=== PATIENT | female | born 2005 | race Two or more races ===

== ENCOUNTER 2024-09-01 22:41 | Emergency (ER) | payer SELFPAY ==
[~2024-09-01] VITALS: Ht 157.5 cm; Wt 69.1 kg
[~2024-09-01 22:41] MED LIST: TYLENOL
--- NOTE | 2024-09-01 23:41 | ED.PDOC ---
Eye-HPI HPI Comments 19-year-old female complaining of bilateral eye irritation and blurred vision. States she had her eyelashes done today at approximate 2:00 p.m.. States she believes some of the chemicals used to help with the eyelashes set got into her eyes. States he has been having burning and irritation since then. Chief Complaint: Eye Problem Time Seen by MD: 23:18 Primary Care Provider: NONE AT THIS TIME Reviewed Notes: Nurses Notes Allergies: Coded Allergies: NO KNOWN ALLERGIES (Unverified , 09/04/11) Home Meds Reported Medications [Tylenol] No Conflict Check 09/04/11 Information Source: Patient Mode of Arrival: Ambulatory Past Medical History PAST MEDICAL HISTORY: Denies Surgical History: Denies all surgeries PRIMARY HEALTH CARE NURSE History: No Pertinent PRIMARY HEALTH CARE NURSE History Family History Family History: Unknown Social History Smoker: Non-Smoker Alcohol: Denies ETOH Use Drugs: Denies Drug Use Lives In: Home Constitutional: denies: chills, diaphoresis, fatigue, fever, malaise, sweats, weakness, others EENTM: reports: eye pain, eye redness; denies: blurred vision, double vision, ear bleeding, ear discharge, ear drainage, ear pain, ear ringing, hearing loss, mouth pain, mouth swelling, nasal discharge, nose bleeding, nose congestion, nose pain, photophobia, tearing, throat pain, throat swelling, voice changes, others Respiratory: denies: cough, hemoptysis, orthopnea, SOB at rest, shortness of breath, SOB with excertion, stridor, wheezing, others Cardiovascular: denies: chest pain, dizzy spells, diaphoresis, Dyspnea on exertion, edema, irregular heart beat, left arm pain, lightheadedness, palpitations, PND, syncope, others Gastrointestinal: denies: abdomen distended, abdominal pain, blood streaked bowels, constipated, diarrhea, dysphagia, difficulty swallowing, hematemesis, melena, nausea, poor appetite, poor fluid intake, rectal bleeding, rectal pain, vomiting, others Genitourinary: denies: abnormal vagina bleeding, burning, dyspareunia, dysuria, flank pain, frequency, hematuria, incontinence, pain, , vagina discharge, urgency, others Musculoskeletal: denies: back pain, gout, joint pain, joint swelling, muscle pain, muscle stiffness, neck pain, others Integumetry: denies: bruises, change in color, change in hair/nails, dryness, laceration, lesions, lumps, rash, wounds, others Allergic/Immunocompromised: denies: Difficulty Healing, Frequent Infections, Hives, Itching, others Hematologic/Lymphatic: denies: anemia, blood clots, easy bleeding, easy bruising, swollen glands, others Physical Exam General Appearance: No Apparent Distress, Normal HEENT: Pharynx Normal, TMs Normal, Other (Bilateral conjunctiva injected, erythemic.) Neck: Full Range of Motion, Non-Tender, Normal, Normal Inspection Respiratory: Chest Non-Tender, Lungs Clear, No Accessory Muscle Use, No Respiratory Distress, Normal Breath Sounds Cardiovascular: No Edema, No JVD, No Murmur, No Gallop, Normal Peripheral Pulses, Regular Rate/Rhythm Breast Exam: Deferred Gastrointestinal: No Organomegaly, Non Tender, No Pulsatile Mass, Normal Bowel Sounds, Soft Genitalia: Deferred Pelvic: Deferred Rectal: Deferred Extremities: No calf tenderness, Normal capillary refill, Normal inspection, Normal range of motion, Non-tender, No pedal edema Musculoskeletal : Apperance: Normal Neurologic: Alert, trolley cleaner II-XII nml as Tested, No Motor Deficits, Normal Affect, Normal Mood, No Sensory Deficits Cerebellar Function: Normal Reflexes: Normal Skin: Dry, Normal Color, Warm Lymphatic: No Adenopathy Was a procedure done? Was a procedure done?: No EENT DIFF Eye: Conjunctivitis, Allergic, Corneal Ulceration, Foreign Body-Conjunctiva, Foreign Body-Corneal X-Ray, Labs, Meds, VS Vital Signs Date Time Temp Pulse Resp B/P (MAP) Pulse Ox O2 Delivery O2 Flow Rate FiO2 09/01/24 23:15 98.1 91 20 123/75 (91) 93 98.1 X-Ray, Labs, Meds, VS Comment Tetracaine drops were instilled into bilateral eyes, eyes were rinsed with normal saline. Patient reports good relief. Time of 1ST Reevaluation: 23:47 Reevaluation 1ST: Improved Patient Education/Counseling: Diagnosis, Treatment, Need For Follow Up (Follow up with PCP next available appointment. Return to the emergency department if symptoms worsen.) Family Education/Counseling: Diagnosis Departure 1 Departure Time of Disposition: 23:46 Impression: Primary Impression: Chemical conjunctivitis of both eyes Disposition: HOME / SELF CARE / HOMELESS Condition: Fair Discharged With: Self Comments Advised to take Benadryl at home and use cool compress. Critical Care Note Critical Care Time?: No Stability Stability form required: No Heart Score Heart Score: Heart Score Response (Comments) Value History N/A 0 EKG N/A 0 Age N/A 0 Risk Factors N/A 0 Troponin N/A 0 Total 0 FELICIA MÁRQUEZ [facility] Sep 01, 2024 23:41
[2024-09-01] MEDS: TETRACAINE HCL 0.5% OPTH(EYE) SOLN 4ML EACHEYE ONE (23:59)
[2024-09-02 00:07] VITALS: BP 107/67; PULSE 77; RESP 16; TEMP 98.3; O2SAT 97
== END 2024-09-02 00:13 | disposition home or self-care (01) ==
LOC: ER 22:41
DX: H10.213 Acute toxic conjunctivitis, bilateral (principal)